=== PATIENT | male | born 1995 | race Caucasian/White ===

== ENCOUNTER → 2017-08-09 | Outpatient (CLI) | payer OTHER | LOC: COL.RAD 09:55 | DX: R56.9 Unspecified convulsions (principal) | CPT/HCPCS: A9585 ==

== ENCOUNTER 2018-07-12 15:26 | Emergency (ER) | payer OTHER ==
[~2018-07-12] VITALS: Ht 182.9 cm; Wt 104.5 kg
[2018-07-12 16:14] VITALS: BP 102/68; PULSE 86; TEMP 98
[2018-07-12] MEDS ORDERED: ZOLOFT 50MG50 MG PO (16:35)
[2018-07-12] MEDS ORDERED: PRILOSEC10 MG PO (16:36)
== END 2018-07-12 17:45 | disposition home or self-care (01) ==
LOC: COL.ER 15:26
DX: S16.1XXA Strain of muscle, fascia and tendon at neck level, initial encounter (principal); J45.909 Unspecified asthma, uncomplicated; F41.9 Anxiety disorder, unspecified; F17.290 Nicotine dependence, other tobacco product, uncomplicated; Z88.1 Allergy status to other antibiotic agents; Z88.6 Allergy status to analgesic agent; W22.8XXA Striking against or struck by other objects, initial encounter